=== PATIENT | male | born 1970 | race Caucasian/White ===

== ENCOUNTER → 2019-06-08 | Outpatient (CLI) | payer BC ==
--- NOTE | 2019-06-08 21:56 | CONS ---
CONSULTATION DATE OF SERVICE: 06/08/2019 This patient is a 48-year-old gentleman who has been evaluated [facility] for significant excessive daytime sleepiness and snoring. HISTORY OF PRESENT ILLNESS/SLEEP-WAKE EVALUATION: Patient's usual sleep schedule is from 10 p.m. to 5 a.m. on working days and from 11 p.m. to 6 a.m. on weekends. Usually no problems with falling asleep at night. No TV in bedroom. He sleeps on the back and side positions with mild snoring and awakenings from sleep more than 10 times. Usually no history of nocturia at night. In the morning the patient wakes up tired, has difficulties paying attention, falling asleep during the day. He has problems with concentration. Occasionally he has episodes of dizziness. [place] Sleepiness Scale is significantly increased at 16. Usually the patient does not take any naps. PAST MEDICAL HISTORY: None. MEDICATIONS: None. SOCIAL HISTORY: Negative for smoking. Alcohol consumption occasional. FAMILY HISTORY: Sleep apnea and snoring in his father. REVIEW OF SYSTEMS: Multiple awakenings from sleep. Significant excessive daytime sleepiness. PHYSICAL EXAMINATION: GENERAL: A pleasant 48-year-old gentleman without distress. VITAL SIGNS: BP 143/86, HR 70, RR 16, height 5 feet 11 inches, weight 170, body mass 23.7, temperature 98.0, oxygen saturation at room air 97%. HEENT: PERRLA, EOMI. Evaluation of oropharynx showed tongue protrudes midline. Low position of soft palate. Mallampati III. Nasal septum deviation. Restriction of nasal breathing. NECK: Supple. No JVD. Thyroid is not palpable. Neck measures 15 inches in circumference. LUNGS: Clear to percussion and to auscultation. Good air exchange. No wheezing or rhonchi. HEART: S1, S2 regular. No murmurs, gallops or rubs. ABDOMEN: Soft and nontender. Bowel sounds are present. No organomegaly. EXTREMITIES: No clubbing or cyanosis. COMMISSIONED SECURITY OFFICER: Awake, alert, and oriented X3. Cranial nerves 2 to 7 intact. There is no fasciculation or atrophy. noted. No focal deficits observed. IMPRESSION: 1. Snoring, multiple awakenings from sleep, low position of soft palate, Mallampati III, restriction of nasal breathing; possible obstructive sleep apnea-hypopnea syndrome. 2. Significant excessive daytime sleepiness. [place] Sleepiness Scale increased at 16. Differential diagnosis includes hypersomnia. 3. Nasal septum deviation with restriction of nasal breathing. PLAN: 1. Home sleep apnea test for evaluation of patient's breathing during sleep. 2. Polysomnogram with following multiple sleep latency test for objective evaluation of patient's symptoms of excessive daytime sleepiness if the home sleep apnea test is negative for obstructive sleep apnea-hypopnea syndrome. 3. Sleep hygiene with regular time in bed for at least 7-1/2 hours. 4. Precautions related to driving. No driving if feeling any sleepiness. Thank you very much for referring this patient for consultation. Sincerely, Adryan Hsu MD, PhD, FAASM Diplomat of [place] [employer] [employer] Operator [facility] [place] MMODL / IJN: [id number] /
== END | disposition home or self-care (01) ==
LOC: SLEEP 16:48
PROVIDERS: ATTEND Internal Medicine
DX: R06.83 Snoring (principal); J34.2 Deviated nasal septum; R42 Dizziness and giddiness
CPT/HCPCS: 99211

== ENCOUNTER → 2019-07-20 | Outpatient (CLI) | payer BC ==
--- NOTE | 2019-07-20 19:46 | PN ---
PROGRESS NOTE DATE OF SERVICE: 07/20/2019 This patient is a 48-year-old gentleman who has been followed in [facility]. He is here to discuss results of his sleep studies and the following plan for symptoms of excessive daytime sleepiness. His previous home sleep apnea test did not show significant respiratory abnormalities. Then we proceeded with polysomnogram and multiple sleep latency test for objective evaluation of patient's symptoms of excessive daytime sleepiness. His polysomnogram did not show significant abnormalities of respiration; mild abnormalities of respiration in REM sleep. Total apnea-hypopnea index was 3.4, which is in normal range. Multiple sleep latency test on the following day consisted of 5 naps and showed significant sleepiness with sleep latency pathologically short at only 3.8 minutes. No sleep-onset REM periods were documented. I discussed results of these sleep studies with the patient and family in detail. The patient continues to feel sleepiness during the day. Today his [place] Sleepiness Scale has increased to 11. MEDICATIONS: None. PHYSICAL EXAMINATION: GENERAL: A pleasant patient in no distress. VITAL SIGNS: BP 127/86, HR 66, RR 16, weight 172.8, temperature 97.2. HEENT: PERRLA, EOMI. Evaluation of oropharynx showed tongue protrudes midline. NECK: Supple. No JVD. Thyroid is not palpable. LUNGS: Clear to percussion and to auscultation. Good air exchange. No wheezing or rhonchi. HEART: S1, S2 regular. No murmurs, gallops or rubs. ABDOMEN: Soft and nontender. Bowel sounds are present. No organomegaly. EXTREMITIES: No clubbing or cyanosis. ASSOCIATE MERCHANT: Awake, alert, and oriented X3. Cranial nerves 2 to 7 intact. There is no fasciculation or atrophy. noted. No focal deficits observed. IMPRESSION: 1. Very minimal abnormalities of respiration during REM sleep by today's criteria during diagnostic polysomnogram. 2. Multiple sleep latency test confirmed pathological sleepiness. Patient is continuing to have sleepiness during the day. 3. Some restriction of nasal breathing. PLAN: 1. The patient will be started on treatment with modafinil with a small dose. Dose will be titrated for correction of excessive daytime sleepiness. 2. Sleep hygiene with regular time in bed for 8 hours. 3. Daytime naps permitted. 4. No driving if feeling any sleepiness. Thank you very much for allowing me to participate in the management of your patient. Sincerely, Adryan Hsu MD, PhD, FAASM Diplomat of [place] [employer] [employer] [place] Operator of [facility] [place] [id number] / KATINAN: [id number] /
== END ==
LOC: SLEEP 15:30
PROVIDERS: ATTEND Internal Medicine
DX: G47.10 Hypersomnia, unspecified (principal); J98.8 Other specified respiratory disorders

== ENCOUNTER → 2019-09-20 | Outpatient (CLI) | payer BC ==
--- NOTE | 2019-09-20 19:27 | MR ---
EXAMINATION TYPE: MR brain wo/w con DATE OF EXAM: 09/20/2019 COMPARISON: CT scan 08/10/2019 HISTORY: Headaches, lightheaded, off balance TECHNIQUE: Multiplanar, multisequence images of the brain and brainstem is performed without and with IV contras t, utilizing 7.5 mL intravenous Gadavist . FINDINGS: Diffusion weighted images demonstrate no evidence of a recent infarct or other diffusion ab normality. There is no extra-axial fluid collection or significant white matter signal abnormality. The ventricular system and cisternal spaces are normal in size and appearance. The brain volume is age appropriate. Midline structures demonstrate normal morphology. The craniocervical junction appears within normal limits. Post contrast images demonstrate no abnormal enhancement. The dural venous sinuses appear pa tent. Mild changes of chronic sinusitis.. IMPRESSION: 1. Mild changes of chronic sinusitis.
== END | disposition home or self-care (01) ==
LOC: RADMRIMAIN 18:07
PROVIDERS: ATTEND Internal Medicine
DX: J32.9 Chronic sinusitis, unspecified (principal); R27.0 Ataxia, unspecified
CPT/HCPCS: 70553; A9585

== ENCOUNTER → 2020-01-02 | Outpatient (CLI) | payer BC | END | disposition home or self-care (01) | LOC: LABWHC1 11:38 | PROVIDERS: ATTEND Family Medicine | DX: A69.9 Spirochetal infection, unspecified (principal) | CPT/HCPCS: 36415 ==

== ENCOUNTER → 2020-09-03 | Outpatient (CLI) | payer BC ==
--- NOTE | 2020-09-03 15:57 | XR ---
EXAMINATION TYPE: XR cervical spine w flex/ext DATE OF EXAM: 09/03/2020 COMPARISON: NONE HISTORY: Headaches TECHNIQUE: 7 views submitted including flexion and extension views FINDINGS: Lung apices clear. Hypertrophic and degenerative changes of the spine. Posterior spondylosi s and retrolisthesis of C3 relative to C4 which slightly improves on flexion and is slightly exaggera stephen on extension. Prevertebral soft tissue structures are within normal limits. Odontoid intact. IMPRESSION: 1. Hypertrophic and degenerative multilevel degenerative disc disease.
== END | disposition home or self-care (01) ==
LOC: RADXRMAIN 15:27
PROVIDERS: ATTEND Internal Medicine
DX: M50.30 Other cervical disc degeneration, unspecified cervical region (principal); M89.38 Hypertrophy of bone, other site
CPT/HCPCS: 72052

== ENCOUNTER → 2020-12-23 | Outpatient (CLI) | payer BC ==
--- NOTE | 2020-12-23 12:42 | MR ---
EXAMINATION TYPE: MR cervical spine wo con DATE OF EXAM: 12/23/2020 COMPARISON: X-ray 09/03/2020 HISTORY: Cervical pain, frank, off balance, fatigue TECHNIQUE: Multiplanar, multisequence images of the cervical spine were acquired. C2-C3: No evidence for degenerative disc disease. No disc bulge/herniation or protrusion. No Canal stenosis. Foramina are patent bilaterally. C3-C4: Broad-based central disc bulging greater paracentrally left with mild effacement of thecal sac . No spinal cord contact or canal stenosis. Facet arthropathy noted with uncovertebral joint hypertro phy and mild left foraminal encroachment. C4-C5: Degenerative disc disease with focal small left paracentral disc herniation resulting in mild effacement of thecal sac. Neural foramina remain patent. Mild uncovertebral joint hypertrophy bilater ally. C5-C6: Degenerative disc disease with bilateral uncovertebral joint hypertrophy. Broad-based central disc bulging with mild effacement of thecal sac but no canal stenosis or foraminal encroachment. C6-C7: Degenerative disc disease with uncovertebral joint hypertrophy. Greater on the right with mild right-sided foraminal encroachment. No canal stenosis or disc herniation. Left neural foramina paten t. C7-T1: No disc herniation or canal stenosis. No foraminal encroachment. Exam is limited by motion artifact. Cervical segments are intact. There is normal alignment. Cervic al spinal cord is of normal signal. Craniovertebral junction relationships are within normal limits. IMPRESSION: 1. Multilevel moderate degenerative disc disease. There is a left paracentral small disc herniation C 4-C5 with mild effacement of thecal sac but no spinal cord contact. 2. Multilevel mild degenerative disc disease secondary to hypertrophic changes of the uncovertebral j oints as discussed above. 3. Broad-based disc bulging C3-4 and C5-C6 with mild effacement of thecal sac.
== END | disposition home or self-care (01) ==
LOC: RADMRIMAIN 08:10
PROVIDERS: ATTEND Psychiatry & Neurology Neurology
DX: M50.222 Other cervical disc displacement at C5-C6 level (principal); M50.323 Other cervical disc degeneration at C6-C7 level
CPT/HCPCS: 72141